=== PATIENT | male | born 1945 | race Caucasian/White ===

== ENCOUNTER 2025-02-01 19:17 | Emergency (ER) | payer OTHER ==
[2025-02-01 19:57] VITALS: BP 133/50; PULSE 63; RESP 18; TEMP 98; O2SAT 93
[2025-02-01 20:11] LABS: BASOPHIL % 0.6 % (0.2-1.2); EOSINOPHIL # 0.2 10^3/uL (0.0-0.2); EOSINOPHIL % 2.9 % (0.0-5.0); HEMATOCRIT(ML) 42.4 % (37.0-53.0); HEMOGLOBIN 13.9 g/dL (13.9-16.3); LYMPHOCYTES # 1.45 10^3/uL1 (1.0-4.8); LYMPHOCYTES % 23.5 % (24.0-44.0); MEAN CORP HGB 30.8 pg (26-34); MEAN CORP HGB CONCENTRATION 32.8 g/dL (33-36.5); MEAN CORP VOLUME 93.8 fL (78-100); MONOCYTES # 0.5 10^3/uL (0.3-0.8); MONOCYTES % 7.6 % (5.0-12.0); NEUTROPHILS % 65.2 % (41.0-85.0); PLATELET COUNT 382 10^3/uL (150-400); RED BLOOD CELL 4.52 10^6/uL (4.50-5.90); RED CELL DISTRIBUTION WIDTH 13.9 % (11.5-14.5); WHITE BLOOD CELL 6.2 10^3/uL (4.5-11.0)
[2025-02-01 20:14] LABS: PROTHROMBIN PROTIME 10.4 SEC (9.3-11.6)
[2025-02-01 20:21] LABS: +ADD MANUAL DIFF(NO CHRG) NO
[2025-02-01 20:43] LABS: ALBUMIN/GLOBULIN RATIO 1.081; ANION GAP 11.7; CALCIUM 9.7 mg/dL (8.4-10.5); CARBON DIOXIDE 26.8 mmol/L (20.0-32); CREATININE SERUM 1.6 mg/dL (0.59-1.40); EST GFR, NON-AA 41.9 (>/=60); POTASSIUM 4.5 mmol/L (3.6-5.2)
[2025-02-01 20:46] LABS: LEUKOCYTE ESTERASE ,URINE NEGATIVE (NEGATIVE); NITRATE,URINE NEGATIVE (NEGATIVE); PH,URINE 6.5 (4.5-8.0)
[2025-02-01 20:48] LABS: APPEARANCE,URINE CLEAR; UA COLOR YELLOW
[2025-02-01 20:55] LABS: UAMPH METHAMP(SCRN) NEGATIVE (co1000ng/mL); UR MDMA (ECSTASY) SCRN NEGATIVE (c/o300ng/mL); UR METHADONE SCRN NEGATIVE (c/o300ng/mL); UR OPIATE SCRN NEGATIVE (c/o300ng/mL); UR PHENCYCLIDINE (PCP) SCRN NEGATIVE (c/o 25ng/mL); UR TETRAHYDROCANNABINOL SCRN PRESUMPTIVE POSITIVE (c/o 50ng/mL)
[2025-02-01 21:00] VITALS: BP 128/60; PULSE 61; RESP 18; TEMP 98; O2SAT 97
[2025-02-01 22:00] VITALS: BP 135/60; PULSE 62; RESP 18; TEMP 98; O2SAT 97
[2025-02-01 23:00] VITALS: BP 138/60; PULSE 59; RESP 18; TEMP 98; O2SAT 97
[2025-02-02 00:02] VITALS: BP 129/66; PULSE 60; RESP 18; RESP 50; TEMP 98; O2SAT 97
== END 2025-02-02 00:10 | disposition home or self-care (01) ==
LOC: EDBD 19:17 → ER 19:17
DX: G20.A1 Parkinson's disease without dyskinesia, without mention of fluctuations (principal); I12.9 Hypertensive chronic kidney disease with stage 1 through stage 4 chronic kidney disease, or unspecified chronic kidney disease; N18.9 Chronic kidney disease, unspecified; F12.90 Cannabis use, unspecified, uncomplicated; G89.29 Other chronic pain; F17.290 Nicotine dependence, other tobacco product, uncomplicated; Z88.0 Allergy status to penicillin; Z98.890 Other specified postprocedural states; V43.52XA Car driver injured in collision with other type car in traffic accident, initial encounter; Y93.89 Activity, other specified; Y92.410 Unspecified street and highway as the place of occurrence of the external cause; Y99.8 Other external cause status
CPT/HCPCS: 99285; 70450; 74177; 81003; 80053; 85025; 36415; 84484; 80307; 82077; 85610; 85730; 93005; Q9965